=== PATIENT | female | born 1955 | race Caucasian/White ===

== ENCOUNTER 2016-08-26 16:52 | Emergency (ER) | payer BC, OTHER ==
[~2016-08-26] VITALS: Ht 154.9 cm; Wt 47.2 kg
[2016-08-26 17:10] VITALS: BP 161/83
--- NOTE | 2016-08-26 19:33 | NUR ---
PT TAKEN TO BED 8
--- NOTE | 2016-08-26 19:40 | NUR ---
61 yo PATIENT PRESENTS TO ED WITH intermitant nose bleed . PT STATES has hed several node bleeds coming from both nostrils light headache . DENIES N/V/D; SKIN IS PINK/WARM/DRY; AAOX4 WITH EVEN AND STEADY GAIT; LUNGS CLEAR BL; HR EVEN AND REGULAR; PT DENIES ANY FEVER, CP, SOB, OR COUGH AT THIS TIME; PATIENT STATES PAIN OF 3/10 AT THIS TIME; VSS;PATIENT POSITIONED FOR COMFORT; HOB ELEVATED; BEDRAILS UP X2; BED DOWN. ER MD MADE AWARE OF PT STATUS.
--- NOTE | 2016-08-26 20:13 | NUR ---
Dr. Orozco evaluating patient at bedside.
[2016-08-26 22:45] VITALS: BP 120/75
--- NOTE | 2016-08-26 22:46 | NUR ---
Patient discharged with v/s stable. Written and verbal after care instructions given and explained. Patient alert, oriented and verbalized understanding of instructions. Ambulatory with steady gait. All questions addressed prior to discharge. ID band removed. Patient advised to follow up with PMD. Rx of OXYMETHAZOLINE MASAL SPRAY given. Patient educated on indication of medication including possible reaction and side effects. Opportunity to ask questions provided and answered.
== END 2016-08-26 22:46 | disposition home or self-care (01) ==
LOC: MED 16:52
DX: R04.0 Epistaxis (principal); R03.0 Elevated blood-pressure reading, without diagnosis of hypertension; R51 Headache; E11.9 Type 2 diabetes mellitus without complications; Z88.5 Allergy status to narcotic agent; Z88.1 Allergy status to other antibiotic agents; Z88.8 Allergy status to other drugs, medicaments and biological substances